=== PATIENT | male | born 2005 | race Caucasian/White ===

== ENCOUNTER 2024-03-06 12:37 | Emergency (ER) | payer SELFPAY ==
[~2024-03-06] VITALS: Ht 167.6 cm; Wt 67.0 kg
[2024-03-06 12:53] VITALS: BP 127/83
[2024-03-06 13:00] VITALS: BP 126/76
[2024-03-06] MEDS ORDERED: Diph, Acellular Pertussis, Tet 0.5 ML/VIAL (Tdap) SDV IM ONE (13:00)
[2024-03-06 13:27] VITALS: BP 127/82
[2024-03-06 13:31] VITALS: BP 110/74
[2024-03-06 14:00] VITALS: BP 122/66
[2024-03-06] MEDS ORDERED: ACETAMINOPHEN 325 MG/TAB PO ONE (14:25)
[2024-03-06 14:53] VITALS: BP 122/66
== END 2024-03-06 15:11 | disposition home or self-care (01) | DRG 605 ==
LOC: ED 12:37
PROC: 0HQ0XZZ Repair Scalp Skin, External Approach (ICD-10-PCS; principal; 2024-03-06)
DX: S01.01XA Laceration without foreign body of scalp, initial encounter (principal); W20.8XXA Other cause of strike by thrown, projected or falling object, initial encounter; Y93.89 Activity, other specified; Y92.89 Other specified places as the place of occurrence of the external cause; Y99.0 Civilian activity done for income or pay

== ENCOUNTER 2024-03-16 17:19 | Emergency (ER) | payer SELFPAY ==
[~2024-03-16] VITALS: Ht 167.6 cm; Wt 68.0 kg
[2024-03-16 17:26] VITALS: BP 114/71
[2024-03-16 17:30] VITALS: BP 111/71
[2024-03-16 17:45] VITALS: BP 111/71
== END 2024-03-16 18:02 | disposition home or self-care (01) | DRG 950 ==
LOC: ED 17:19
DX: S01.01XD Laceration without foreign body of scalp, subsequent encounter (principal); X58.XXXD Exposure to other specified factors, subsequent encounter